=== PATIENT | female | born 1995 | race Caucasian/White ===

== ENCOUNTER → 2021-03-03 | Outpatient (CLI) | payer BC ==
--- NOTE | 2021-03-03 13:36 | Diagnostic Imaging Report ---
INDICATION: survey TECHNIQUE: Multiple real-time grayscale images were obtained over the gravid uterus. COMPARISON: None FINDINGS: There are no prior studies available for comparison. There is a single live fetus in cephalic presentation. heart motion was noted and a rate of 139 BPM was recorded. There were no abnormalities noted. The placenta is anterior and fundal and there is no previa. The amniotic fluid volume is within normal limits. The growth parameters are fairly uniform. The cervix was identified and measures 5.4 cm in length. IMPRESSION: 1.. There is a single live fetus approximately 20 weeks 4 days gestation +/- 1.5 weeks. The EDC is 07/17/2021. 2. There were no abnormalities identified. 3. The growth parameters are fairly uniform. Biometrical measurements are as follows: Biparietal 4.97 cm, age 21 weeks 1 days. Head circumference 17.58 cm, age 20 weeks 1 days. Abdominal circumference 15.07 cm, age 20 weeks 3 days. Femur length 3.23 cm, age 20 weeks 1 days. Sonographic estimate age: 20 weeks 4 days. Sonographic estimated date of delivery: 07/17/2021. Estimated Weight: 340 gm (+/- 50 gm). LMP percentile: 21%. heart rate: 139 beats per minute. number: 1 of 1. Dictated by: Dictated on workstation # [id number]
== END ==
LOC: RAD 12:00
PROVIDERS: ATTEND Obstetrics & Gynecology
DX: Z34.02 Encounter for supervision of normal first pregnancy, second trimester (principal); Z3A.20 20 weeks gestation of pregnancy
CPT/HCPCS: 76805

== ENCOUNTER → 2021-06-14 | Outpatient (CLI) | payer BC | LOC: LABNPT 11:52 | PROVIDERS: ATTEND Obstetrics & Gynecology | DX: Z36.85 Encounter for antenatal screening for Streptococcus B (principal) | CPT/HCPCS: 87081 ==

== ENCOUNTER 2021-07-16 15:01 | Inpatient (IN) | payer BC ==
[~2021-07-16] VITALS: Ht 162.5 cm; Wt 91.2 kg
[2021-07-16] VITALS (16 sets, daily range): BP systolic 122–156; BP diastolic 77–99
[2021-07-16 15:30] LABS: BILIRUBIN,URINE NEGATIVE (NEGATIVE); CLARITY,URINE CLEAR; COLOR,URINE YELLOW; GLUCOSE, URINE (UA) NEGATIVE (NEGATIVE); KETONES,URINE NEGATIVE (NEGATIVE); LEUKOCYTE ESTERASE ,URINE NEGATIVE (NEGATIVE); NITRITE,URINE NEGATIVE (NEGATIVE); PROTEIN,URINE NEGATIVE (NEGATIVE)
[2021-07-16] MEDS ORDERED: PREN-164 PO (15:38)
[2021-07-16 15:40] LABS: BACTERIA,URINE NEGATIVE /HPF; SQUAMOUS EPITHELIAL CELL,UR RARE /HPF
[2021-07-16] MEDS ORDERED: LACTATED RINGERS 1,000 ML IV ONE (16:20)
[2021-07-16] MEDS: LACTATED RINGERS 1,000 ML IV SCH (16:28)
[2021-07-16 16:45] LABS: BASOPHILS % (AUTO) 0 % (0-10); EOSINOPHILS # (AUTO) 0.3 10^3/uL (0.0-0.3); EOSINOPHILS % (AUTO) 3 % (0-10); HEMATOCRIT 37 % (35-52); HEMOGLOBIN 12.5 g/dL (11.5-16.0); LYMPHOCYTES % (AUTO) 20 % (12-44); MEAN CORPUSCULAR HEMOGLOBIN 30 pg (25-34); MEAN CORPUSCULAR HGB CONC 34 g/dL (32-36); MEAN CORPUSCULAR VOLUME 88 fL (80-99); MEAN PLATELET VOLUME 10.8 fL (9.0-12.2); MONOCYTES % (AUTO) 10 % (0-12); NEUTROPHILS # (AUTO) 6.5 10^3/uL (1.8-7.8); NEUTROPHILS % (AUTO) 66 % (42-75); PLATELET COUNT 214 10^3/uL (130-400); WHITE BLOOD COUNT 9.9 10^3/uL (4.3-11.0)
[2021-07-16] MEDS ORDERED: MINERAL OIL 30 ML TOP PRN (16:45)
--- NOTE | 2021-07-16 17:53 | History & Physical-OB ---
OB - Chief Complaint & HPI Date/Time Date of Admission: Date of Admission: July 16, 2021 at 16:22 Date seen by a Provider: July 16, 2021 Time Seen by a Provider: 17:00 Chief Complaint/History OB-Reason for Admission/Chief: Induction of Labor Hx : 2 Hx Para: 1 Expected Date of Delivery: July 16, 2021 Gestational Age in Weeks: 40 Gestational Age in Days: 0 Indication for induction: medical complication Other reason for admission: IOL due to gestational hypertension Admission Nurse Assessment Rev: Yes Other Kellee Aguirre is a 26 yo at 40.0wga who presented to L&D with complaints of decreased movement. Upon arrival, her blood pressure was noted to be 143/93 with some resolution to the 130/80s. However, upon review of her records, she was noted to have a mildly elevated blood pressure at her [address] Shirley last week with a blood pressure of 134/96. She has ruled in for gestational hypertension at this time. She denies SOSA, lightheadedness, blurry vision, chest pain or RUQ Abdominal pain. She endorses some contractions, but denies LOF and vaginal bleeding. movement has improved as she has remained on the monitor. Allergies and Home Medications Allergies Coded Allergies: No Known Drug Allergies (Unverified , 07/16/21) Patient Home Medication List Home Medication List Reviewed: Yes No.137/Iron/Folic Acd ( Vitamin Tablet) 27 Mg-0.8 Mg Tablet, 1 EACH PO DAILY, (Reported) Entered as Reported by: ERICH DURAN on 07/16/21 0445 Last Action: New Order OB - History Hx of Present Care: Yes Ultrasounds: Normal mid trimester US Obstetrical Complications: Gestational Hypertension Medical Complications: None Obstetrical History Hx : 2 Hx Para: 1 Hx Termination: No Hx Total # of Abortions (Spona: 0 Hx Multiple Gestation: No Hx Ectopic : No Hx Stillbirth: No Hx Complication: Yes Hx Induced Hypertens: Yes Hx Maternal Gestational Diabet: No Hx Hemorrhage: No Delivery History Hx Dystocia: No Hx Forceps Assisted Delivery: No Hx Vacuum Extraction Assisted: No Hx Placenta Abnormality: No Hx Distress: No Hx Large For Gestational Age I: No Hx Small for Gestational Age I: No Hx Section: No Hx Vaginal Delivery Post C-Sec: No Hx Blood Disorders: No Adverse Rxn to Tranfusion: No Patient Past Medical History None Social History/Family History Alcohol Use: Denies Use Recreational Drug Use: No 2nd Hand Smoke Exposure: No OB - Admission Exam Physical Exam Vitals: Vital Signs 07/16/21 15:51 Temp 36.4 Pulse 83 Resp 18 Pulse Ox 98 O2 Delivery Room Air Heart: Rhythm Normal Lungs: Clear, Rhonchi Abdomen: Gravid Extremities: Normal Reflexes: Normal Cervical Dilatation: 2cm Effacement: 75% Station: -3 Membranes: Intact Heart Rate: 140's Accelerations: Accelerations Present Decelerations: No Decelerations Fci Variability: Average (6-25) Contractions on Admission: < 5 Minutes Apart Intensity: Mild Labs Laboratory Tests Test 07/16/21 15:05 07/16/21 16:28 Range/Units Urine Color YELLOW Urine Clarity CLEAR Urine pH 6.0 5-9 Urine Specific [place] <=1.005 1.016-1.022 Urine Protein NEGATIVE NEGATIVE Urine Glucose (UA) NEGATIVE NEGATIVE Urine Ketones NEGATIVE NEGATIVE Urine Nitrite NEGATIVE NEGATIVE Urine Bilirubin NEGATIVE NEGATIVE Urine Urobilinogen 0.2 < = 1.0 MG/DL Urine Leukocyte Esterase NEGATIVE NEGATIVE Urine RBC (Auto) NEGATIVE NEGATIVE Urine RBC NONE /HPF Urine WBC NONE /HPF Urine Squamous Epithelial Cells RARE /HPF Urine Crystals NONE /LPF Urine Bacteria NEGATIVE /HPF Urine Casts NONE /LPF Urine Mucus NEGATIVE /LPF Urine Culture Indicated NO White Blood Count 9.9 4.3-11.0 10^3/uL Red Blood Count 4.17 3.80-5.11 10^6/uL Hemoglobin 12.5 11.5-16.0 g/dL Hematocrit 37 35-52 % Mean Corpuscular Volume 88 80-99 fL Mean Corpuscular Hemoglobin 30 25-34 pg Mean Corpuscular Hemoglobin Concent 34 32-36 g/dL Red Cell Distribution Width 13.2 10.0-14.5 % Platelet Count 214 130-400 10^3/uL Mean Platelet Volume 10.8 9.0-12.2 fL Immature Granulocyte % (Auto) 0 % Neutrophils (%) (Auto) 66 42-75 % Lymphocytes (%) (Auto) 20 12-44 % Monocytes (%) (Auto) 10 0-12 % Eosinophils (%) (Auto) 3 0-10 % Basophils (%) (Auto) 0 0-10 % Neutrophils # (Auto) 6.5 1.8-7.8 10^3/uL Lymphocytes # (Auto) 2.0 1.0-4.0 10^3/uL Monocytes # (Auto) 1.0 0.0-1.0 10^3/uL Eosinophils # (Auto) 0.3 0.0-0.3 10^3/uL Basophils # (Auto) 0.0 0.0-0.1 10^3/uL Immature Granulocyte # (Auto) 0.0 0.0-0.1 10^3/uL OB - Assessment/Plan/Diagnosis Assessment Assessment: induction of labor Admission Dx Gestational Hypertension Admission Status: Inpatient Order (span 2 midnights) Reason for Inpatient Admission: Induction of labor due to gestational hypertension Plan Plan: Induction Induction Method: other (Cook's Balloon and pitocin augmentation) Other Plan Kellee Aguirre is a 26yo at 40.0wga who has ruled in gestational hypertension. Will proceed forward with induction of labor with Cook's balloon placement and pitocin. Patient is GBS negative and does not require PCN. She is A+ and does not require RHOGAM. Will allow for Cook's balloon to remain in place for a max of 12 hours with Pitocin augmentation titrated up to 4mu/min. Will continue pitocin titration once Cook's balloon falls out or is removed and will plan for AROM. Will allow regular diet until Cook's balloon is removed, then patient should be ordered clears. Anticipate vaginal delivery. Problems: (1) Gestational hypertension (2) 40 weeks gestation of Discharge Diagnosis Diagnosis: Gestational Hypertension HARVINDER ANGEL MD July 16, 2021 17:53
[2021-07-16] MEDS ORDERED: BUTORPHANOL INJ 2 MG/ML (STADOL) VIAL IV PRN (18:00)
[2021-07-16] MEDS ORDERED: LORazepam 1 MG (ATIVAN) TAB PO PRN (18:00)
[2021-07-16] MEDS ORDERED: diphenhydrAMINE 50 MG/ML INJ (BENADRYL) IVP PRN (18:00)
[2021-07-16] MEDS ORDERED: OXYTOCIN PRE-MIX DRIP 500 ML IV SCH ×2 (18:00)
[2021-07-16 18:10] LABS: ALBUMIN 3.6 GM/DL (3.2-4.5)
[2021-07-16 18:11] LABS: POTASSIUM 3.9 MMOL/L (3.6-5.0)
[2021-07-16 18:12] LABS: CALCIUM 9.2 MG/DL (8.5-10.1)
[2021-07-16 18:13] LABS: TOTAL PROTEIN 6.8 GM/DL (6.4-8.2)
[2021-07-16 18:15] LABS: BILIRUBIN,TOTAL 0.3 MG/DL (0.1-1.0)
[2021-07-16 18:17] LABS: CREATININE SERUM 0.64 MG/DL (0.60-1.30)
[2021-07-16 18:20] LABS: URIC ACID 4.1 MG/DL (2.6-7.2)
[2021-07-16 18:56] LABS: URINE CREATININE FOR RATIO 23 MG/DL (30-125)
[2021-07-16 18:57] LABS: URINE PROTEIN FOR RATIO ONLY < 6 MG/DL (6-12)
[2021-07-16] MEDS: D5 LR IV SOLUTION 1,000 ML IV SCH (21:22)
[2021-07-16] MEDS: CATHETER FLUSH 10 ML SYR IV SCH (22:00)
[2021-07-16] MEDS ORDERED: fentaNYL 2 mcg/ml BUPIVA 0.125 0 ML ONE (23:00)
[2021-07-16] MEDS ORDERED: BUPIVACAINE 0.25% 10 ML (SENSORCAINE) VIAL ONE (23:47)
[2021-07-16] MEDS ORDERED: fentaNYL INJ 100 MCG/2 ML AMP ONE (23:48)
[2021-07-17] VITALS (13 sets, daily range): BP systolic 120–161; BP diastolic 58–84
[2021-07-17] MEDS ORDERED: LIDOCAINE/EPI 2% 1:200,00 (XYLOCAINE) 10 ML VIAL ONE (00:02)
[2021-07-17] MEDS: OXYTOCIN PRE-MIX DRIP 500 ML IV SCH ×2 (00:15→00:44)
--- NOTE | 2021-07-17 00:28 | OB Labor & Delivery Record ---
Vag Delivery Note Vag Delivery Note Date of Delivery: 07/17/21 Preoperative Diagnosis: Kellee Aguirre is a 26yo /Para 2 / 1, Gestational Age (wks)40 here for IOL due to gestational hypertension. Postoperative Diagnosis: Same Surgeon: HARVINDER ANGEL Remelt Sugar Boiler: None Anesthesia: None Delivery Type: Findings: Viable female , apgars 8,9 weight 7#5, 3310grams Lacerations: None Intact placenta with 3 vessel cord. No nuchal cord, body cord or shoulder dystocia Cytotec 1000 mcg placed for hemorrhage prophylaxis Estimated Blood Loss: 100 ml Complications: None Condition: Stable Description of Procedure: The patient is a 26 year old female who presented with complaints of decreased f etal movement and was found to have elevated blood pressures. She ruled in for gestational hypertension given an elevated blood pressure reading at her last appointment and upon presentation to the hospital today. The decision was made to admit for induction of labor due to gestational hypertension. She was admitted and informed consent was obtained. Her labor course was remarkable for precipitous labor. She had a cooks balloon placed at 2cm and progressed to complete dilation in 7 hours. She began to push. She was then set up for delivery. The infant's head was delivered atraumatically in the direct OA position. The shoulders and remainder of the 's body were then delivered without difficulty. Upon delivery, the head was held below the level of the perineum and the mouth and nares were bulb suctioned. The cord was doubly clamped and cut and the infant was handed off to the pediatric staff. An intact placenta with 3-vessel cord delivered via Shivani and there was found to be minimal bleeding. Vigorous fundal massage was performed and the fundus was found to be firm. IV oxytocin was given. Examination of the vagina and perineum revealed no lacerations. Following the repair, sponge, instrument and needle counts were correct. Mom and baby were both in stable condition in the labor suite. Vitals - Labs Vital Signs - I&O Vital Signs Date Time Temp Pulse Resp B/P (MAP) Pulse Ox O2 Delivery O2 Flow Rate FiO2 07/16/21 20:45 80 18 132/78 (96) Room Air 07/16/21 20:30 18 Room Air 07/16/21 20:15 18 Room Air 07/16/21 20:00 18 Room Air 07/16/21 19:45 18 Room Air 07/16/21 19:30 18 Room Air 07/16/21 19:15 93 18 156/87 (110) Room Air 07/16/21 19:00 93 18 156/87 (110) Room Air 07/16/21 18:45 92 18 151/89 (109) Room Air 07/16/21 18:15 67 18 144/92 (109) Room Air 07/16/21 18:15 67 18 143/99 (114) Room Air 07/16/21 17:58 77 18 135/87 (103) Room Air 07/16/21 16:34 75 18 137/92 (107) 98 Room Air 07/16/21 16:00 77 18 132/82 (99) Room Air 07/16/21 15:51 36.4 83 18 98 Room Air 07/16/21 15:30 77 18 137/82 (100) Room Air 07/16/21 15:10 36.4 83 18 143/93 (110) 98 Room Air 07/16/21 15:10 36.4 83 18 98 Room Air I & O 07/17/21 07:00 Intake Total 1000 ml Balance 1000 ml Labs Laboratory Tests 07/16/21 15:05: Urine Color YELLOW, Urine Clarity CLEAR, Urine pH 6.0, Urine Specific [place] <=1.005, Urine Protein < 6L, Urine Glucose (UA) NEGATIVE, Urine Ketones NEGATIVE, Urine Nitrite NEGATIVE, Urine Bilirubin NEGATIVE, Urine Urobilinogen 0.2, Urine Leukocyte Esterase NEGATIVE, Urine RBC (Auto) NEGATIVE, Urine RBC NONE, Urine WBC NONE, Urine Squamous Epithelial Cells RARE, Urine Crystals NONE, Urine Bacteria NEGATIVE, Urine Casts NONE, Urine Mucus NEGATIVE, Urine Culture Indicated NO, Urine Creatinine 23L, Urine Protein/Creatinine Ratio 07/16/21 16:28: White Blood Count 9.9, Red Blood Count 4.17, Hemoglobin 12.5, Hematocrit 37, Mean Corpuscular Volume 88, Mean Corpuscular Hemoglobin 30, Mean Corpuscular Hemoglobin Concent 34, Red Cell Distribution Width 13.2, Platelet Count 214, Mean Platelet Volume 10.8, Immature Granulocyte % (Auto) 0, Neutrophils (%) (Auto) 66, Lymphocytes (%) (Auto) 20, Monocytes (%) (Auto) 10, Eosinophils (%) (Auto) 3, Basophils (%) (Auto) 0, Neutrophils # (Auto) 6.5, Lymphocytes # (Auto) 2.0, Monocytes # (Auto) 1.0, Eosinophils # (Auto) 0.3, Basophils # (Auto) 0.0, Immature Granulocyte # (Auto) 0.0, Sodium Level 136, Potassium Level 3.9, Chloride Level 104, Carbon Dioxide Level 19L, Anion Gap 13, Blood Urea Nitrogen 6L, Creatinine 0.64, Estimat Glomerular Filtration Rate 125, BUN/Creatinine Ratio 9, Glucose Level 82, Uric Acid 4.1, Calcium Level 9.2, Corrected Calcium 9.5, Total Bilirubin 0.3, Aspartate Amino Transf (AST/SGOT) 14, Alanine Aminotransferase (ALT/SGPT) 9, Alkaline Phosphatase 128, Lactate Dehydrogenase 188, Total Protein 6.8, Albumin 3.6 HARVINDER ANGEL MD July 17, 2021 00:28
[2021-07-17] MEDS ORDERED: TETANUS,DIPTH,PERTUSS P/F (BOOSTRIX) 0.5 ML VIAL IM ONE (00:30)
[2021-07-17] MEDS ORDERED: MEASLES,MUMPS,RUBELLA 1 EA INJ SQ ONE (00:30)
[2021-07-17] MEDS ORDERED: NALOXONE 0.4 MG/ML 1 ML (NARCAN) VIAL IV PRN ×2 (00:30→02:45)
[2021-07-17] MEDS ORDERED: BENZOCAINE/MENTHOL (DERMOPLAST) 56 ML CAN TP PRN (00:30)
[2021-07-17] MEDS ORDERED: WITCH HAZEL(TUCKS) 40 EA JAR TOP PRN (00:30)
[2021-07-17] MEDS: D5 LR IV SOLUTION 1,000 ML IV SCH ×2 (00:45→08:45)
[2021-07-17] MEDS ORDERED: IBUPROFEN 600 MG (MOTRIN) TAB PO ONE ×2 (01:55→20:03)
[2021-07-17] MEDS ORDERED: ACETAMINOPHEN 500 MG TAB (TYLENOL) ONE (01:55)
[2021-07-17] MEDS: ACETAMINOPHEN 500 MG TAB (TYLENOL) PO SCH ×3 (01:57→22:02)
[2021-07-17] MEDS: IBUPROFEN 600 MG (MOTRIN) TAB PO SCH ×4 (01:58→20:20)
[2021-07-17] MEDS ORDERED: LACTATED RINGERS 1,000 ML IV ONE (03:45)
[2021-07-17] MEDS ORDERED: CATHETER FLUSH 10 ML SYR IV SCH (06:00)
[2021-07-17] MEDS: LACTATED RINGERS 1,000 ML IV SCH ×2 (07:23→13:50)
[2021-07-17] MEDS: CATHETER FLUSH 10 ML SYR IV SCH (07:23)
[2021-07-17] MEDS: FERROUS SULF 325 MG (IRON) TAB PO SCH (07:57)
[2021-07-17] MEDS: PRENATAL VITAMIN 1 EA TAB PO SCH (07:57)
[2021-07-17] MEDS: DOCUSATE SODIUM 100 MG (COLACE) CAP PO SCH ×2 (07:57→20:20)
--- NOTE | 2021-07-17 12:51 | Postpartum Progress Note ---
Note Note Day # 1 Subjective: Patient is without complaints. Ambulating, voiding. Tolerating a regular diet without nausea or vomiting. Normal lochia. Pain is well controlled with oral pain medications. . Voiding and passing flatus with no issues. Objective: VS - Last 72 Hours, by Label 07/16/21 07/16/21 07/16/21 07/16/21 15:10 15:10 15:30 15:51 Temp 36.4 36.4 36.4 Pulse 83 83 77 83 Resp 18 18 18 18 B/P (MAP) 143/93 (110) 137/82 (100) Pulse Ox 98 98 98 O2 Delivery Room Air Room Air Room Air Room Air 07/16/21 07/16/21 07/16/21 07/16/21 16:00 16:34 17:58 18:15 Pulse 77 75 77 67 Resp 18 18 18 18 B/P (MAP) 132/82 (99) 137/92 (107) 135/87 (103) 143/99 (114) Pulse Ox 98 O2 Delivery Room Air Room Air Room Air Room Air 07/16/21 07/16/21 07/16/21 07/16/21 18:15 18:45 19:00 19:15 Pulse 67 92 93 93 Resp 18 18 18 18 B/P (MAP) 144/92 (109) 151/89 (109) 156/87 (110) 156/87 (110) O2 Delivery Room Air Room Air Room Air Room Air 07/16/21 07/16/21 07/16/21 07/16/21 19:30 19:45 20:00 20:15 Resp 18 18 18 18 B/P (MAP) O2 Delivery Room Air Room Air Room Air Room Air 07/16/21 07/16/21 07/16/21 07/16/21 20:30 20:45 21:00 21:15 Temp 36.8 Pulse 80 84 81 Resp 18 18 18 18 B/P (MAP) 132/78 (96) 127/78 (94) 122/78 (93) O2 Delivery Room Air Room Air Room Air Room Air 07/16/21 07/16/21 07/16/21 07/16/21 21:30 21:45 22:00 22:15 Pulse 75 Resp 18 18 18 18 B/P (MAP) 126/77 (93) O2 Delivery Room Air Room Air Room Air Room Air 07/16/21 07/16/21 07/16/21 07/16/21 22:30 22:45 23:00 23:15 Pulse 74 92 Resp 18 18 18 18 B/P (MAP) 133/88 (103) 134/87 (103) O2 Delivery Room Air Room Air Room Air Room Air 07/16/21 07/16/21 07/17/21 07/17/21 23:30 23:45 00:00 00:11 Resp 18 18 18 18 B/P (MAP) O2 Delivery Room Air Room Air Room Air Room Air 07/17/21 07/17/21 07/17/21 07/17/21 00:15 00:21 00:25 00:41 Pulse 104 99 97 99 Resp 18 18 18 18 B/P (MAP) 161/75 (103) 150/68 (95) 120/58 (78) 137/80 (99) O2 Delivery Room Air Room Air Room Air Room Air 07/17/21 07/17/21 07/17/21 07/17/21 01:10 01:25 01:37 06:30 Temp 36.5 36.4 36.7 Pulse 85 83 83 81 Resp 18 18 18 18 B/P (MAP) 136/77 (96) 131/73 (92) 126/64 (84) 151/81 (104) Pulse Ox 97 O2 Delivery Room Air Room Air Room Air Room Air 07/17/21 10:02 Temp 36.9 Pulse 73 Resp 16 B/P (MAP) 138/84 (102) Pulse Ox 99 O2 Delivery Room Air Laboratory Tests Test 07/16/21 15:05 07/16/21 16:28 Range/Units Urine Color YELLOW Urine Clarity CLEAR Urine pH 6.0 5-9 Urine Specific [place] <=1.005 1.016-1.022 Urine Protein < 6 L 6-12 MG/DL Urine Glucose (UA) NEGATIVE NEGATIVE Urine Ketones NEGATIVE NEGATIVE Urine Nitrite NEGATIVE NEGATIVE Urine Bilirubin NEGATIVE NEGATIVE Urine Urobilinogen 0.2 < = 1.0 MG/DL Urine Leukocyte Esterase NEGATIVE NEGATIVE Urine RBC (Auto) NEGATIVE NEGATIVE Urine RBC NONE /HPF Urine WBC NONE /HPF Urine Squamous Epithelial Cells RARE /HPF Urine Crystals NONE /LPF Urine Bacteria NEGATIVE /HPF Urine Casts NONE /LPF Urine Mucus NEGATIVE /LPF Urine Culture Indicated NO Urine Creatinine 23 L 30-125 MG/DL Urine Protein/Creatinine Ratio White Blood Count 9.9 4.3-11.0 10^3/uL Red Blood Count 4.17 3.80-5.11 10^6/uL Hemoglobin 12.5 11.5-16.0 g/dL Hematocrit 37 35-52 % Mean Corpuscular Volume 88 80-99 fL Mean Corpuscular Hemoglobin 30 25-34 pg Mean Corpuscular Hemoglobin Concent 34 32-36 g/dL Red Cell Distribution Width 13.2 10.0-14.5 % Platelet Count 214 130-400 10^3/uL Mean Platelet Volume 10.8 9.0-12.2 fL Immature Granulocyte % (Auto) 0 % Neutrophils (%) (Auto) 66 42-75 % Lymphocytes (%) (Auto) 20 12-44 % Monocytes (%) (Auto) 10 0-12 % Eosinophils (%) (Auto) 3 0-10 % Basophils (%) (Auto) 0 0-10 % Neutrophils # (Auto) 6.5 1.8-7.8 10^3/uL Lymphocytes # (Auto) 2.0 1.0-4.0 10^3/uL Monocytes # (Auto) 1.0 0.0-1.0 10^3/uL Eosinophils # (Auto) 0.3 0.0-0.3 10^3/uL Basophils # (Auto) 0.0 0.0-0.1 10^3/uL Immature Granulocyte # (Auto) 0.0 0.0-0.1 10^3/uL Sodium Level 136 135-145 MMOL/L Potassium Level 3.9 3.6-5.0 MMOL/L Chloride Level 104 98-107 MMOL/L Carbon Dioxide Level 19 L 21-32 MMOL/L Anion Gap 13 5-14 MMOL/L Blood Urea Nitrogen 6 L 7-18 MG/DL Creatinine 0.64 0.60-1.30 MG/DL Estimat Glomerular Filtration Rate 125 BUN/Creatinine Ratio 9 Glucose Level 82 70-105 MG/DL Uric Acid 4.1 2.6-7.2 MG/DL Calcium Level 9.2 8.5-10.1 MG/DL Corrected Calcium 9.5 8.5-10.1 MG/DL Total Bilirubin 0.3 0.1-1.0 MG/DL Aspartate Amino Transf (AST/SGOT) 14 5-34 U/L Alanine Aminotransferase (ALT/SGPT) 9 0-55 U/L Alkaline Phosphatase 128 40-136 U/L Lactate Dehydrogenase 188 125-220 U/L Total Protein 6.8 6.4-8.2 GM/DL Albumin 3.6 3.2-4.5 GM/DL Physical Exam: General - Alert and oriented, no apparent distress Abdomen - Soft, appropriately tender to palpation, non-distended, fundus firm at umbilicus Extremities - no edema, negative Jose Cruz's bilaterally Assessment: Post- day # 0, status post vaginal delivery. complicated by gestational hypertension resulting in IOL at 40 wga. Recovering well, hemodynamically stable Plan: Routine care. GHTN: PreE labs are negative. BP in period normotensive since delivery aside from one elevated BP of 151/81. Viable female . Encourage breast feeding. VTE pps: Encourage ambulation. Heme: preop hgb 12.5 --> postop hgb pending AM labs. Ferrous sulfate supplementation. Plan for discharge tomorrow morning pending continued improvement. Vitals - Labs Vital Signs - I&O Vital Signs Date Time Temp Pulse Resp B/P (MAP) Pulse Ox O2 Delivery O2 Flow Rate FiO2 07/17/21 10:02 36.9 73 16 138/84 (102) 99 Room Air 07/17/21 06:30 36.7 81 18 151/81 (104) 97 Room Air 07/17/21 01:37 83 18 126/64 (84) Room Air 07/17/21 01:25 36.4 83 18 131/73 (92) Room Air 07/17/21 01:10 36.5 85 18 136/77 (96) Room Air 07/17/21 00:41 99 18 137/80 (99) Room Air 07/17/21 00:25 97 18 120/58 (78) Room Air 07/17/21 00:21 99 18 150/68 (95) Room Air 07/17/21 00:15 104 18 161/75 (103) Room Air 07/17/21 00:11 18 Room Air 07/17/21 00:00 18 Room Air 07/16/21 23:45 18 Room Air 07/16/21 23:30 18 Room Air 07/16/21 23:15 18 Room Air 07/16/21 23:00 18 Room Air 07/16/21 22:45 92 18 134/87 (103) Room Air 07/16/21 22:30 74 18 133/88 (103) Room Air 07/16/21 22:15 18 Room Air 07/16/21 22:00 18 Room Air 07/16/21 21:45 18 Room Air 07/16/21 21:30 75 18 126/77 (93) Room Air 07/16/21 21:15 81 18 122/78 (93) Room Air 07/16/21 21:00 36.8 84 18 127/78 (94) Room Air 07/16/21 20:45 80 18 132/78 (96) Room Air 07/16/21 20:30 18 Room Air 07/16/21 20:15 18 Room Air 07/16/21 20:00 18 Room Air 07/16/21 19:45 18 Room Air 07/16/21 19:30 18 Room Air 07/16/21 19:15 93 18 156/87 (110) Room Air 07/16/21 19:00 93 18 156/87 (110) Room Air 07/16/21 18:45 92 18 151/89 (109) Room Air 07/16/21 18:15 67 18 144/92 (109) Room Air 07/16/21 18:15 67 18 143/99 (114) Room Air 07/16/21 17:58 77 18 135/87 (103) Room Air 07/16/21 16:34 75 18 137/92 (107) 98 Room Air 07/16/21 16:00 77 18 132/82 (99) Room Air 07/16/21 15:51 36.4 83 18 98 Room Air 07/16/21 15:30 77 18 137/82 (100) Room Air 07/16/21 15:10 36.4 83 18 143/93 (110) 98 Room Air 07/16/21 15:10 36.4 83 18 98 Room Air I & O 07/17/21 07:00 Intake Total 3450 ml Balance 3450 ml Labs Laboratory Tests 07/16/21 15:05: Urine Color YELLOW, Urine Clarity CLEAR, Urine pH 6.0, Urine Specific [place] <=1.005, Urine Protein < 6L, Urine Glucose (UA) NEGATIVE, Urine Ketones NEGATIVE, Urine Nitrite NEGATIVE, Urine Bilirubin NEGATIVE, Urine Urobilinogen 0.2, Urine Leukocyte Esterase NEGATIVE, Urine RBC (Auto) NEGATIVE, Urine RBC NONE, Urine WBC NONE, Urine Squamous Epithelial Cells RARE, Urine Crystals NONE, Urine Bacteria NEGATIVE, Urine Casts NONE, Urine Mucus NEGATIVE, Urine Culture Indicated NO, Urine Creatinine 23L, Urine Protein/Creatinine Ratio 07/16/21 16:28: White Blood Count 9.9, Red Blood Count 4.17, Hemoglobin 12.5, Hematocrit 37, Mean Corpuscular Volume 88, Mean Corpuscular Hemoglobin 30, Mean Corpuscular Hemoglobin Concent 34, Red Cell Distribution Width 13.2, Platelet Count 214, Mean Platelet Volume 10.8, Immature Granulocyte % (Auto) 0, Neutrophils (%) (Auto) 66, Lymphocytes (%) (Auto) 20, Monocytes (%) (Auto) 10, Eosinophils (%) (Auto) 3, Basophils (%) (Auto) 0, Neutrophils # (Auto) 6.5, Lymphocytes # (Auto) 2.0, Monocytes # (Auto) 1.0, Eosinophils # (Auto) 0.3, Basophils # (Auto) 0.0, Immature Granulocyte # (Auto) 0.0, Sodium Level 136, Potassium Level 3.9, Chloride Level 104, Carbon Dioxide Level 19L, Anion Gap 13, Blood Urea Nitrogen 6L, Creatinine 0.64, Estimat Glomerular Filtration Rate 125, BUN/Creatinine Ratio 9, Glucose Level 82, Uric Acid 4.1, Calcium Level 9.2, Corrected Calcium 9.5, Total Bilirubin 0.3, Aspartate Amino Transf (AST/SGOT) 14, Alanine Aminotransferase (ALT/SGPT) 9, Alkaline Phosphatase 128, Lactate Dehydrogenase 188, Total Protein 6.8, Albumin 3.6 HARVINDER ANGEL MD July 17, 2021 12:51
[2021-07-17] MEDS ORDERED: DOCU100C37 PO (12:55)
[2021-07-17] MEDS ORDERED: FERR325T24 PO (12:55)
[2021-07-17] MEDS ORDERED: IBUP-844 PO (12:55)
--- NOTE | 2021-07-17 12:56 | Discharge Inst-Simple/Standard ---
Discharge Inst-Standard Reconcile Patient Problems Problems Reviewed?: Yes Discharge Medications New, Converted or Re-Newed RX: Transmitted to Pharmacy Patient Instructions/Follow Up Plan of Care/Instructions/FU: Follow-up in 1 week for a blood pressure check with Dr. Shirley. Activity as Tolerated: Yes Discharge Diet: No Restrictions HARVINDER ANGEL MD July 17, 2021 12:56
[2021-07-18 02:45] VITALS: BP 109/61
[2021-07-18] MEDS: IBUPROFEN 600 MG (MOTRIN) TAB PO SCH ×2 (02:45→07:48)
[2021-07-18] MEDS: FERROUS SULF 325 MG (IRON) TAB PO SCH (07:48)
[2021-07-18] MEDS: PRENATAL VITAMIN 1 EA TAB PO SCH (07:48)
[2021-07-18] MEDS: DOCUSATE SODIUM 100 MG (COLACE) CAP PO SCH (07:48)
[2021-07-18 07:53] VITALS: BP 108/69
[2021-07-18 08:21] LABS: BASOPHILS % (AUTO) 0 % (0-10); EOSINOPHILS # (AUTO) 0.3 10^3/uL (0.0-0.3); EOSINOPHILS % (AUTO) 4 % (0-10); HEMATOCRIT 35 % (35-52); HEMOGLOBIN 11.6 g/dL (11.5-16.0); LYMPHOCYTES # (AUTO) 2.6 10^3/uL (1.0-4.0); LYMPHOCYTES % (AUTO) 28 % (12-44); MEAN CORPUSCULAR HEMOGLOBIN 30 pg (25-34); MEAN CORPUSCULAR HGB CONC 33 g/dL (32-36); MEAN CORPUSCULAR VOLUME 90 fL (80-99); MEAN PLATELET VOLUME 10.4 fL (9.0-12.2); MONOCYTES # (AUTO) 0.7 10^3/uL (0.0-1.0); MONOCYTES % (AUTO) 8 % (0-12); NEUTROPHILS # (AUTO) 5.6 10^3/uL (1.8-7.8); NEUTROPHILS % (AUTO) 60 % (42-75); PLATELET COUNT 192 10^3/uL (130-400); WHITE BLOOD COUNT 9.4 10^3/uL (4.3-11.0)
--- NOTE | 2021-07-18 08:30 | Postpartum Progress Note ---
Note Note Day # 1 Subjective: Patient is without complaints. Ambulating, voiding. Tolerating a regular diet without nausea or vomiting. Normal lochia. Pain is well controlled with oral pain medications. . She is passing flatus and meeting her milestones. Objective: VS - Last 72 Hours, by Label 07/16/21 07/16/21 07/16/21 07/16/21 15:10 15:10 15:30 15:51 Temp 36.4 36.4 36.4 Pulse 83 83 77 83 Resp 18 18 18 18 B/P (MAP) 143/93 (110) 137/82 (100) Pulse Ox 98 98 98 O2 Delivery Room Air Room Air Room Air Room Air 07/16/21 07/16/21 07/16/21 07/16/21 16:00 16:34 17:58 18:15 Pulse 77 75 77 67 Resp 18 18 18 18 B/P (MAP) 132/82 (99) 137/92 (107) 135/87 (103) 143/99 (114) Pulse Ox 98 O2 Delivery Room Air Room Air Room Air Room Air 07/16/21 07/16/21 07/16/21 07/16/21 18:15 18:45 19:00 19:15 Pulse 67 92 93 93 Resp 18 18 18 18 B/P (MAP) 144/92 (109) 151/89 (109) 156/87 (110) 156/87 (110) O2 Delivery Room Air Room Air Room Air Room Air 07/16/21 07/16/21 07/16/21 07/16/21 19:30 19:45 20:00 20:15 Resp 18 18 18 18 B/P (MAP) O2 Delivery Room Air Room Air Room Air Room Air 07/16/21 07/16/21 07/16/21 07/16/21 20:30 20:45 21:00 21:15 Temp 36.8 Pulse 80 84 81 Resp 18 18 18 18 B/P (MAP) 132/78 (96) 127/78 (94) 122/78 (93) O2 Delivery Room Air Room Air Room Air Room Air 07/16/21 07/16/21 07/16/21 07/16/21 21:30 21:45 22:00 22:15 Pulse 75 Resp 18 18 18 18 B/P (MAP) 126/77 (93) O2 Delivery Room Air Room Air Room Air Room Air 07/16/21 07/16/21 07/16/21 07/16/21 22:30 22:45 23:00 23:15 Pulse 74 92 Resp 18 18 18 18 B/P (MAP) 133/88 (103) 134/87 (103) O2 Delivery Room Air Room Air Room Air Room Air 07/16/21 07/16/21 07/17/21 07/17/21 23:30 23:45 00:00 00:11 Resp 18 18 18 18 B/P (MAP) O2 Delivery Room Air Room Air Room Air Room Air 07/17/21 07/17/21 07/17/21 07/17/21 00:15 00:21 00:25 00:41 Pulse 104 99 97 99 Resp 18 18 18 18 B/P (MAP) 161/75 (103) 150/68 (95) 120/58 (78) 137/80 (99) O2 Delivery Room Air Room Air Room Air Room Air 07/17/21 07/17/21 07/17/21 07/17/21 01:10 01:25 01:37 06:30 Temp 36.5 36.4 36.7 Pulse 85 83 83 81 Resp 18 18 18 18 B/P (MAP) 136/77 (96) 131/73 (92) 126/64 (84) 151/81 (104) Pulse Ox 97 O2 Delivery Room Air Room Air Room Air Room Air 07/17/21 07/17/21 07/17/21 07/17/21 10:02 14:22 16:30 18:15 Temp 36.9 36.7 36.5 Pulse 73 70 71 59 Resp 16 18 18 B/P (MAP) 138/84 (102) 123/68 (86) 143/75 (97) 126/71 (89) Pulse Ox 99 99 98 O2 Delivery Room Air Room Air Room Air 07/17/21 07/18/21 07/18/21 21:54 02:45 07:53 Temp 36.1 36.0 36.0 Pulse 69 65 67 Resp 18 18 18 B/P (MAP) 120/65 (83) 109/61 (77) 108/69 (82) Pulse Ox 97 98 99 O2 Delivery Room Air Room Air Room Air Laboratory Tests Test 07/18/21 08:10 Range/Units White Blood Count 9.4 4.3-11.0 10^3/uL Red Blood Count 3.90 3.80-5.11 10^6/uL Hemoglobin 11.6 11.5-16.0 g/dL Hematocrit 35 35-52 % Mean Corpuscular Volume 90 80-99 fL Mean Corpuscular Hemoglobin 30 25-34 pg Mean Corpuscular Hemoglobin Concent 33 32-36 g/dL Red Cell Distribution Width 13.5 10.0-14.5 % Platelet Count 192 130-400 10^3/uL Mean Platelet Volume 10.4 9.0-12.2 fL Immature Granulocyte % (Auto) 1 % Neutrophils (%) (Auto) 60 42-75 % Lymphocytes (%) (Auto) 28 12-44 % Monocytes (%) (Auto) 8 0-12 % Eosinophils (%) (Auto) 4 0-10 % Basophils (%) (Auto) 0 0-10 % Neutrophils # (Auto) 5.6 1.8-7.8 10^3/uL Lymphocytes # (Auto) 2.6 1.0-4.0 10^3/uL Monocytes # (Auto) 0.7 0.0-1.0 10^3/uL Eosinophils # (Auto) 0.3 0.0-0.3 10^3/uL Basophils # (Auto) 0.0 0.0-0.1 10^3/uL Immature Granulocyte # (Auto) 0.1 0.0-0.1 10^3/uL Physical Exam: General - Alert and oriented, no apparent distress Abdomen - Soft, appropriately tender to palpation, non-distended, fundus firm at umbilicus Extremities - no edema, negative Jose Cruz's bilaterally Assessment: Post- day #1, status post vaginal delivery. complicated by gestational hypertension resulting in IOL at 40 wga. Recovering well, hemodynamically stable. Plan: Routine care. GHTN: PreE labs are negative. BP in period normotensive since delivery. She has had occasional outliers with 143/75 on yesterday afternoon at 1630, but otherwise her blood pressures have remained stable. She denies s/s of preeclampsia. Viable female infant. Encourage breast feeding. VTE pps: Encourage ambulation. Heme: preop hgb 12.5 --> 11.6. Ferrous sulfate supplementation. Plan for discharge today with plans for follow-up in 1 week for a BP check and 6 weeks for a examination. Vitals - Labs Vital Signs - I&O Vital Signs Date Time Temp Pulse Resp B/P (MAP) Pulse Ox O2 Delivery O2 Flow Rate FiO2 07/18/21 07:53 36.0 67 18 108/69 (82) 99 Room Air 07/18/21 02:45 36.0 65 18 109/61 (77) 98 Room Air 07/17/21 21:54 36.1 69 18 120/65 (83) 97 Room Air 07/17/21 18:15 59 126/71 (89) 07/17/21 16:30 36.5 71 18 143/75 (97) 98 Room Air 07/17/21 14:22 36.7 70 18 123/68 (86) 99 Room Air 07/17/21 10:02 36.9 73 16 138/84 (102) 99 Room Air Labs Laboratory Tests 07/18/21 08:10: White Blood Count 9.4, Red Blood Count 3.90, Hemoglobin 11.6, Hematocrit 35, Mean Corpuscular Volume 90, Mean Corpuscular Hemoglobin 30, Mean Corpuscular Hemoglobin Concent 33, Red Cell Distribution Width 13.5, Platelet Count 192, Mean Platelet Volume 10.4, Immature Granulocyte % (Auto) 1, Neutrophils (%) (Auto) 60, Lymphocytes (%) (Auto) 28, Monocytes (%) (Auto) 8, Eosinophils (%) (Auto) 4, Basophils (%) (Auto) 0, Neutrophils # (Auto) 5.6, Lymphocytes # (Auto) 2.6, Monocytes # (Auto) 0.7, Eosinophils # (Auto) 0.3, Basophils # (Auto) 0.0, Immature Granulocyte # (Auto) 0.1 HARVINDER ANGEL MD July 18, 2021 08:29
[2021-07-18 09:10] VITALS: BP 108/69
== END 2021-07-18 10:48 | disposition home or self-care (01) | DRG 807 ==
LOC: LDRP 15:01 → WSo 15:01 → LDRP 16:22 → WSo 16:22 → LDRP 07-17 01:55
PROVIDERS: ADMIT Obstetrics & Gynecology; ATTEND Obstetrics & Gynecology
PROC: 10E0XZZ Delivery of Products of Conception, External Approach (ICD-10-PCS; principal; 2021-07-17)
PROC: 0U7C7ZZ Dilation of Cervix, Via Natural or Artificial Opening (ICD-10-PCS; 2021-07-17)
DX: O13.4 Gestational [pregnancy-induced] hypertension without significant proteinuria, complicating childbirth (principal); Z37.0 Single live birth; O48.0 Post-term pregnancy; Z3A.40 40 weeks gestation of pregnancy
CPT/HCPCS: 36415; 80053; 81000; 82570; 83615; 84156; 84550; 85025; 86850; 86900; 86901; 99212

== ENCOUNTER → 2022-12-01 | Outpatient (CLI) | payer BC ==
[~2022-12-01] MED LIST: DOCU100C37 PO; FERR325T24 PO; IBUP-844 PO; PREN-164 PO
--- NOTE | 2022-12-01 15:40 | Diagnostic Imaging Report ---
PROCEDURE: US OB SINGLE FETUS <14 WKS. TECHNIQUE: Multiple real-time grayscale images were obtained over the gravid uterus in various projections. INDICATION: Routine care. There is a single live IUP measuring approximately 13 weeks 3 days gestational age. Heart rate was recorded at 155 bpm. Placenta appears to be developing anteriorly. Gestational sac shape is normal. There is no perigestational sac hemorrhage. The right ovary does contain a 25 mm cyst. The left ovary contains small follicles. No adnexal mass or free fluid is detected. IMPRESSION: Single live IUP approximately 13 weeks 3 days gestational age with estimated date of confinement sonographically of 06/05/2023. Dictated by: Dictated on workstation # [id number]
== END ==
LOC: RAD 10:49
PROVIDERS: ATTEND Nurse Practitioner Family
DX: Z34.01 Encounter for supervision of normal first pregnancy, first trimester (principal); Z3A.13 13 weeks gestation of pregnancy
CPT/HCPCS: 76801